=== PATIENT | female | born 1960 | race Hispanic/Latino ===

== ENCOUNTER 2017-07-18 07:25 | Outpatient (CLI) | payer OTHER ==
--- NOTE | 2017-07-18 09:48 | ULT ---
ULTRASOUND ABDOMEN: Date: 07/18/17 HISTORY: Left upper quadrant pain, cirrhosis. FINDINGS: The liver demonstrates a coarse echotexture with irregularity of the surface consistent with cirrhosi s. No focal mass or intrahepatic ductal dilatation is seen. The spleen measures 11.3 cm in length and is normal. The patient is post cholecystectomy. The common duct measures 4.0 mm in diameter. The kid neys and visualized portions of the pancreas are unremarkable. No free fluid is seen. IMPRESSION: 1. Cirrhosis of the liver. No evidence of liver mass. 2. Status post cholecystectomy. POS: [facility]
== END 2017-07-18 07:26 | disposition home or self-care (01) ==
LOC: ULT 07:25
PROVIDERS: ATTEND Internal Medicine Gastroenterology
DX: K74.60 Unspecified cirrhosis of liver (principal); R18.8 Other ascites; R10.12 Left upper quadrant pain; Z90.49 Acquired absence of other specified parts of digestive tract
CPT/HCPCS: 76700

== ENCOUNTER 2017-08-23 09:09 | Outpatient (CLI) | payer OTHER ==
--- NOTE | 2017-08-23 09:49 | CT ---
CT HEAD NONCONTRAST: HISTORY: Headaches. COMPARISON: 03/20/16. FINDINGS: There is no evidence of acute intracranial hemorrhage or infarct. The ventricles appear normal in si ze, shape, and position. There is no mass effect or shift of midline structures. Visualized paranas al sinuses remain well aerated. IMPRESSION: No acute intracranial abnormalities are demonstrated on noncontrast CT head. POS: [facility]
--- NOTE | 2017-08-23 10:36 | CT ---
CT CERVICAL SPINE: Multiple axial tomograms obtained through the cervical spine with multiplanar reconstruction. INDICATION: Headache and neck pain. FINDINGS: Postoperative changes are noted. Anterior plate and screws transfix C3, C4, and C5 levels. Interbod y implant and partial fusion at C3-4 and C4-5 noted. A prominent posterior osteophyte at C2-3 abuts and mildly flattens the anterior cord. At the C3-4 and C4-5 levels, there are bony spondylitic changes posteriorly. A prominent osteophyte at C4-5 impinging on the anterior cord centrally and slightly to the right. Uncinate hypertrophy is present resulting I mild left foraminal encroachment. At C5-6, mild spondylosis and disk bulge. These changes efface the anterior subarachnoid space. At C6-7, mild spondylosis effaces the anterior subarachnoid space. IMPRESSION: 1. Postop changes with prior anterior fusion procedure with anterior plate and screws transfixing C3 , C4, and C5 with interbody implants and partial fusion at these levels. 2. Prominent posterior osteophyte at C2-3 impinges on the cord. 3. Spondylitic changes are seen at C3-4 and C4-5 with these bony hypertrophic changes impinging on t he cord at these levels. POS: [facility]
== END 2017-08-23 09:10 | disposition home or self-care (01) ==
LOC: CT 09:09
PROVIDERS: ATTEND Student in an Organized Health Care Education/Training Program
DX: G43.719 Chronic migraine without aura, intractable, without status migrainosus (principal); M54.2 Cervicalgia; G51.0 Bell's palsy; M25.78 Osteophyte, vertebrae; M47.892 Other spondylosis, cervical region; Z98.1 Arthrodesis status
CPT/HCPCS: 70450; 72125

== ENCOUNTER 2017-11-05 07:01 | Day surgery (SDC) | payer OTHER ==
[2017-11-04 12:21] VITALS: BMI 36.0
[2017-11-05 08:19] VITALS: BP 110/53; TEMP 98.2
[2017-11-05] MEDS ORDERED: HYDROcodone/Acetaminophen 5/325 mg Tablet ONE (08:54)
--- NOTE | 2017-11-05 09:29 | CT ---
CERVICAL MYELOGRAM CT CERVICAL SPINE WITH CONTRAST: History: Neck pain. Prior surgery. FINDINGS: After explaining the procedure and answering all questions, the lower back was prepped and draped in the usual sterile fashion. Sterile technique, buffered local anesthesia, fluoroscopic guidance, and a right posterolateral L3-4 approach were used to carefully advance a 22 gauge spinal needle to the th ecal sac. A total volume of 8 cc of Isovue 300M contrast was carefully instilled into the thecal sac under fluoroscopic control. Needle was removed. Patient was carefully positioned to move contrast int o the cervical spine. Fluoro time = 1.3 minutes. Patient tolerated the procedure well and was transferred to CT in good con dition for further imaging. Vertebral body heights and alignment are maintained. Anterior fixation of the cervical spine is prese nt at C3-4-5 levels with interbody fusion material in the confines in the disc spaces. C2-3: Posterior midline osteophyte/disc complex with effacement of the ventral aspect of the thecal s ac and spinal cord. Neural foramina are patent. C3-4: Post-operative changes. Mild effacement of the ventral aspect of the thecal sac and spinal cord by an osteophyte/disc complex. Neural foramina are patent. C4-5: Post-operative changes. Posterior osteophyte/disc complex effaces the ventral aspect of the the leslie sac and spinal cord by approximately 20%. Neural foramina are patent. C5-6: Mild posterior osteophyte/disc complex with minimal effacement of the thecal sac. Neural forami na are patent. C6-7: Mild osteophytosis. Central canal and neural foramina are patent. C7-T1: Central canal and neural foramina are patent. IMPRESSION: Post-operative changes and mild multilevel degenerative changes cervical spine as detailed above. No focal disc herniation or nerve root compression are apparent. POS: [facility]
[2017-11-05] MEDS ORDERED: Iopamidol-M 300 61% 15 ML VIAL ONE (12:38)
== END 2017-11-05 10:30 | disposition home or self-care (01) ==
LOC: RAD 07:01
PROVIDERS: ATTEND Neurological Surgery
PROC: B02BY0Z Computerized Tomography (CT Scan) of Spinal Cord using Other Contrast, Unenhanced and Enhanced (ICD-10-PCS; principal; 2017-11-05)
DX: M47.812 Spondylosis without myelopathy or radiculopathy, cervical region (principal); J45.909 Unspecified asthma, uncomplicated; M79.7 Fibromyalgia; G43.909 Migraine, unspecified, not intractable, without status migrainosus; K21.9 Gastro-esophageal reflux disease without esophagitis; K74.60 Unspecified cirrhosis of liver; E11.9 Type 2 diabetes mellitus without complications; F32.9 Major depressive disorder, single episode, unspecified; Z88.0 Allergy status to penicillin; Z88.8 Allergy status to other drugs, medicaments and biological substances; Z88.1 Allergy status to other antibiotic agents; Z79.84 Long term (current) use of oral hypoglycemic drugs; Z79.899 Other long term (current) drug therapy; Z79.52 Long term (current) use of systemic steroids
CPT/HCPCS: 62302; 72126

== ENCOUNTER 2018-01-31 12:31 | Outpatient (CLI) | payer OTHER ==
--- NOTE | 2018-01-31 15:52 | CT ---
CT ABDOMEN AND PELVIS WITH CONTRAST: INDICATIONS: Nonalcoholic cirrhosis. Nausea and bloating. COMPARISON: Prior abdominal CT, dated 02/06/2017. TECHNIQUE: Multiple axial tomograms obtained through the abdomen and pelvis with IV enhancement. Oral contrast was given. FINDINGS: The lung bases are clear. The liver shows a very nodular contour. The overall size of the liver is small. The spleen is not e nlarged. Post cholecystectomy changes are noted. Small volume ascites is noted, with a small amount of fluid around the liver and spleen and radiating into both colonic gutters. The pancreas is unremarkable in appearance. The adrenal glands and kidneys are unremarkable. Small bowel loops show nonspecific distention and have a similar appearance to the prior study. The right colon is poorly distended. I cannot exclude mural thickening in the right colon, and there is some surrounding inflammatory stranding and haziness around the right colon, of uncertain significanc e. Diverticulosis of the left colon and sigmoid colon without CT evidence of diverticulitis. There are numerous nonspecific mesenteric and periaortic lymph nodes, which are increased in number b ut are stable when compared to prior study. There are increased vascular structures in the upper abdomen, seen in the hepatogastric region and ex tending to the esophagus, consistent with esophageal varices and portal hypertension. IMPRESSION: 1. Nodular liver, consistent with history of cirrhosis. There is evidence of portal hypertension wi th esophageal varices. 2. Small volume ascites. 3. Increased number of nonspecific mesenteric and periaortic lymph nodes, which appear stable from p rior studies. 4. Nondistention of right colon with questioned mural thickening and surrounding inflammation. The surrounding inflammatory changes may be due to the ascites. POS: [facility]
== END 2018-01-31 12:32 | disposition home or self-care (01) ==
LOC: BICCT 12:31
PROVIDERS: ATTEND Internal Medicine Gastroenterology
DX: K74.60 Unspecified cirrhosis of liver (principal); K76.6 Portal hypertension; I85.10 Secondary esophageal varices without bleeding; R18.8 Other ascites; K76.89 Other specified diseases of liver
CPT/HCPCS: 74177

== ENCOUNTER 2018-11-04 08:20 | Outpatient (CLI) | payer OTHER, MEDICARE ==
--- NOTE | 2018-11-04 10:59 | ULT ---
HEPATIC ULTRASOUND WITH DUPLEX EVALUATION: HISTORY: Cirrhosis. COMPARISON: CT of the abdomen and pelvis dated 01/31/2018. TECHNIQUE: Desai scale, color Doppler images were obtained of the liver and spleen. Spectral Doppler evaluation was performed of the hepatic vasculature. FINDINGS: There is cirrhotic morphology of the liver. No focal hepatic lesion is evident. The gallbladder is surgically absent. The spleen is mildly enlarged measuring 12.2 cm. The common bile duct measures 3.4 cm. The visualized aspects of the pancreas are unremarkable. There is mild ascites around the liver. Appropriate hepatopetal flow is seen within the hepatic vasculature. IMPRESSION: 1. Cirrhosis with findings of portal hypertension and mild ascites. 2. Appropriate hepatopetal flow is seen within the hepatic vasculature. POS: [facility]
== END 2018-11-04 08:21 | disposition home or self-care (01) ==
LOC: BICULT 08:20
PROVIDERS: ATTEND Internal Medicine Gastroenterology
DX: K74.60 Unspecified cirrhosis of liver (principal); K76.89 Other specified diseases of liver; R18.8 Other ascites; K76.6 Portal hypertension
CPT/HCPCS: 76705

== ENCOUNTER 2018-12-19 10:57 | Outpatient (CLI) | payer OTHER, MEDICARE ==
--- NOTE | 2018-12-19 11:53 | ULT ---
ULTRASOUND DOPPLER DUPLEX VENOUS LEFT LOWER EXTREMITY: DATE: 12/19/2018 HISTORY: 58-year-old female with left lower extremity pain TECHNIQUE: Grayscale, color-flow, and spectral analysis, of major veins of left lower extremity. FINDINGS: There is demonstration of blood flow with normal compressibility, of the left common femoral, profund a femoral, greater saphenous, femoral, popliteal, and posterior tibial, veins. IMPRESSION: Negative. No deep venous thrombosis of left lower extremity.
== END 2018-12-19 10:58 | disposition home or self-care (01) ==
LOC: ULT 10:57
PROVIDERS: ATTEND Internal Medicine
DX: M79.652 Pain in left thigh (principal)

== ENCOUNTER 2019-03-19 18:19 | Emergency (ER) | payer OTHER, MEDICARE ==
--- NOTE | 2019-03-19 20:07 | ULT ---
ULTRASOUND DOPPLER DUPLEX VENOUS BILATERAL LOWER EXTREMITIES: DATE: 03/19/2019 HISTORY: Bilateral lower extremity pain in 58-year-old female TECHNIQUE: Grayscale, color-flow, and spectral analysis, of major veins of bilateral lower extremities. FINDINGS: There is demonstration of blood flow with normal compressibility, of the bilateral common femoral, pr ofunda femoral, greater saphenous, femoral, popliteal, and posterior tibial, veins. IMPRESSION: Negative. No deep venous thrombosis of bilateral lower extremities.
== END 2019-03-19 20:18 | disposition home or self-care (01) ==
LOC: SCSER 18:19
DX: M79.661 Pain in right lower leg (principal); M79.651 Pain in right thigh; M25.561 Pain in right knee; J44.9 Chronic obstructive pulmonary disease, unspecified; I10 Essential (primary) hypertension; M79.7 Fibromyalgia; E11.40 Type 2 diabetes mellitus with diabetic neuropathy, unspecified; G43.909 Migraine, unspecified, not intractable, without status migrainosus; M19.90 Unspecified osteoarthritis, unspecified site; F32.9 Major depressive disorder, single episode, unspecified; Z79.899 Other long term (current) drug therapy; Z79.84 Long term (current) use of oral hypoglycemic drugs
CPT/HCPCS: 93970

== ENCOUNTER 2019-06-19 14:12 | Outpatient (CLI) | payer OTHER, MEDICARE ==
--- NOTE | 2019-06-19 15:11 | RAD ---
PA AND LATERAL VIEWS OF THE CHEST: 06/19/19 HISTORY: Dyspnea. FINDINGS: Comparison is made to the exam of 08/07/16. The heart size is mildly enlarged. The lungs are expanded without focal areas of consolidation, pneum othoraces, sapna pulmonary edema or pleural effusions. There are degenerative changes in the spine. IMPRESSION: No radiographic evidence of acute cardiopulmonary process. POS: [facility]
== END 2019-06-19 14:13 | disposition home or self-care (01) ==
LOC: BICRAD 14:12
PROVIDERS: ATTEND Internal Medicine Gastroenterology
DX: R06.00 Dyspnea, unspecified (principal); K74.60 Unspecified cirrhosis of liver; M79.604 Pain in right leg; M79.605 Pain in left leg; M54.2 Cervicalgia; G89.29 Other chronic pain; K21.9 Gastro-esophageal reflux disease without esophagitis; K72.91 Hepatic failure, unspecified with coma; E11.9 Type 2 diabetes mellitus without complications
CPT/HCPCS: 71046

== ENCOUNTER 2019-10-27 07:49 | Outpatient (CLI) | payer OTHER, MEDICARE ==
--- NOTE | 2019-10-27 08:19 | ULT ---
Sonogram abdomen complete HISTORY: Cirrhosis. FINDINGS: Gallbladder is surgically absent. Common duct is 0.3 cm. Liver has a heterogeneous echotexture and very nodular contour. No focal mass or intrahepatic biliary dilatation evident. No free fluid. The spleen, kidneys, and visualized portions of abdominal aorta and IVC are within normal limits. Castillo creas mostly obscured by bowel gas. IMPRESSION : Cirrhotic appearance of the liver. No sonographic findings of portal venous hypertension. Status post cholecystectomy.
== END 2019-10-27 07:50 | disposition home or self-care (01) ==
LOC: BICULT 07:49
PROVIDERS: ATTEND Internal Medicine Gastroenterology
DX: K21.9 Gastro-esophageal reflux disease without esophagitis (principal); R10.30 Lower abdominal pain, unspecified; K72.91 Hepatic failure, unspecified with coma; M54.2 Cervicalgia; G89.29 Other chronic pain; M79.605 Pain in left leg; M79.604 Pain in right leg; E11.9 Type 2 diabetes mellitus without complications; R05 Cough; K74.69 Other cirrhosis of liver; Z90.49 Acquired absence of other specified parts of digestive tract
CPT/HCPCS: 93975

== ENCOUNTER 2020-04-01 16:54 | Emergency (ER) | payer MEDICARE, OTHER ==
[~2020-04-01 16:54] MED LIST: Iopamidol-370 76% 500 ML 1 ML ONE
[2020-04-01 17:29] LABS: Hemoglobin 13.9 g/dL (12.0-16.0); Mean Corpuscular HGB CONC 35.2 g/dL (32.0-36.0); Mean Corpuscular Hemoglobin 35.9 pg (27.0-31.0); Mean Platelet Volume 7.8 fL (7.4-10.4); Platelet Count 107 thou/uL (130-400); RBC Distribution Width 12.5 % (11.5-14.5); Red Blood Cell (RBC) Count 3.86 mill/uL (4.20-5.40); White Blood Cell (WBC) Count 4.8 thou/uL (4.8-10.8)
--- NOTE | 2020-04-01 17:51 | RAD ---
RADIOGRAPH CHEST 1 VIEW: DATE: 04/01/2020 HISTORY: 59 year-old: Positive female presents with dyspnea FINDINGS: There is cardiomegaly. There is mild prominence of pulmonary vasculature. There is no evidence of air space density, pulmonary edema, or pneumothorax. The lateral costophrenic angles are not effaced. IMPRESSION: 1) No consolidation. 2) cardiomegaly and mild pulmonary venous congestion, without sapna pulmonary edema.
[2020-04-01 17:56] LABS: ALT (SGPT) 31 U/L (8-55); AST (SGOT) 46 U/L (5-34); Albumin 3.2 g/dL (3.5-5.0); Alkaline Phosphatase 200 U/L (40-110); Anion Gap 15 mmol/L (10-20); BUN (Urea Nitrogen) 10 mg/dL (9.8-20.1); Bilirubin, Total 2.4 mg/dL (0.2-1.2); Calc. Creatinine Clearance 0 mL/min (70-130); Calcium 9.3 mg/dL (7.8-10.44); Carbon Dioxide 25 mmol/L (22-29); Chloride 101 mmol/L (98-107); Globulin 3.4 g/dL (2.4-3.5); Glucose 189 mg/dL (70-105); Protein, Total 6.6 g/dL (6.0-8.3); Sodium 137 mmol/L (136-145)
[2020-04-01 18:07] LABS: Band 4 % (5-11); Eosinophils 4 % (0-10); Lymphocytes 19 % (21-51); MDiff Complete? YES; Macrocytosis SLIGHT = 6-15 cells (100X) (0-5/hpf); Monocytes 10 % (0-10); Neutrophil 60 % (42-75); Platelet Morphology Comment Appears Decreased
--- NOTE | 2020-04-01 19:28 | CT ---
CT PULMONARY ANGIOGRAM WITH IV CONTRAST AND 3D POSTPROCESSIN04/01/20 HISTORY: Difficulty breathing, elevated D-dimer. COVID positive. FINDINGS: No filling defects are seen in the pulmonary arterial vasculature to suggest pulmonary embolism. The thoracic aorta is well opacified without aneurysm or dissection. No pleural or pericardial effusions are seen. No pneumothoraces, ground glass opacities, focal areas of consolidation, lung nodules, or m asses are seen. Upper abdominal tomograms demonstrate cirrhosis of the liver, changes of cholecystectomy, ascites, an d paraesophageal varices. There are degenerative changes in the spine. IMPRESSION: No CT evidence of pulmonary embolism. POS: [facility]
== END 2020-04-01 19:42 | disposition home or self-care (01) ==
LOC: ERS 16:54
DX: U07.1 COVID-19 (principal); K74.60 Unspecified cirrhosis of liver; G51.0 Bell's palsy; J44.9 Chronic obstructive pulmonary disease, unspecified; M79.7 Fibromyalgia; E11.21 Type 2 diabetes mellitus with diabetic nephropathy; Z79.84 Long term (current) use of oral hypoglycemic drugs; Z79.899 Other long term (current) drug therapy
CPT/HCPCS: 36415; 71045; 71275; 80053; 84484; 85025; 85379; 93005; Q9967

== ENCOUNTER 2020-05-13 08:40 | Outpatient (CLI) | payer OTHER, MEDICARE ==
--- NOTE | 2020-05-13 10:20 | CT ---
CT ABDOMEN AND PELVIS WITH IV CONTRAST: Date: 05/13/2020 INDICATION: History of upper abdominal pain. COMPARISON: Prior CT of the abdomen and pelvis with contrast dated 01/31/2018. FINDINGS: Lung bases are clear. There are prominent paraesophageal varicosities that are stable to the prior. There is cirrhotic morphology to the liver. No focal lesion is evident. Gallbladder is surgically abs ent. A few shotty appearing lymph nodes are seen within the periportal region. Main portal vein appears to enhance appropriately. Pancreas, spleen, and adrenal glands are normal appearing. Visualized kidneys are normal appearing. T here is mild free fluid in the abdomen. The visualized colon demonstrates a mild amount of retained stool. Small bowel is of normal caliber. No definite acute osseous abnormality is evident. IMPRESSION: 1. Cirrhosis with findings of portal hypertension with prominent paraesophageal varicosities. 2. Mild ascites. 3. No definite CT explanation for the patient's abdominal pain. POS: [facility]
[2020-05-13] MEDS ORDERED: Iopamidol-370 76% 500 ML 1 ML ONE (14:54)
== END 2020-05-13 08:41 | disposition home or self-care (01) ==
LOC: BICCT 08:40
PROVIDERS: ATTEND Internal Medicine Gastroenterology
DX: K74.60 Unspecified cirrhosis of liver (principal); I85.00 Esophageal varices without bleeding; R18.8 Other ascites; K76.6 Portal hypertension
CPT/HCPCS: 74160; Q9967

== ENCOUNTER 2020-11-10 13:37 | Outpatient (CLI) | payer OTHER, MEDICARE | END 2020-11-10 13:38 | disposition home or self-care (01) | LOC: BICRAD 13:37 | PROVIDERS: ATTEND Internal Medicine Gastroenterology | DX: J90 Pleural effusion, not elsewhere classified (principal); K74.60 Unspecified cirrhosis of liver; K21.9 Gastro-esophageal reflux disease without esophagitis; E11.9 Type 2 diabetes mellitus without complications | CPT/HCPCS: 71046 ==

== ENCOUNTER 2021-04-05 07:20 | Outpatient (CLI) | payer OTHER, MEDICARE | END 2021-04-05 07:21 | disposition home or self-care (01) | LOC: ULT 07:20 | PROVIDERS: ATTEND Internal Medicine Gastroenterology | DX: K21.9 Gastro-esophageal reflux disease without esophagitis (principal); R14.0 Abdominal distension (gaseous); E11.9 Type 2 diabetes mellitus without complications; K74.60 Unspecified cirrhosis of liver; K76.6 Portal hypertension; R18.8 Other ascites | CPT/HCPCS: 76705 ==

== ENCOUNTER 2021-08-23 13:16 | Inpatient (IN) | payer OTHER, MEDICARE ==
[2021-08-23 14:32] LABS: Bacteria/HPF None Seen HPF (None Seen); Bilirubin Negative (Negative); Blood, Urine Negative (Negative); Clarity Turbid (Clear); Glucose, Urine (Dipstick) Normal (Negative); Ketone, Urine Negative (Negative); Leukocyte 250 Leu/uL (Negative); Nitrite Negative (Negative); Protein, Urine (Dipstick) 30 mg/dL (Neg-Trace); RBC/HPF 0-3 HPF (0-3)
[2021-08-23] MEDS ORDERED: Ondansetron PF 4 MG/2 ML Vial ONE (15:03)
[2021-08-23] MEDS ORDERED: Morphine 4 MG/ML VIAL ONE (15:04)
[2021-08-23 15:08] LABS: Hemoglobin 11.5 g/dL (12.0-16.0); Mean Corpuscular HGB CONC 33.9 g/dL (32.0-36.0); Mean Corpuscular Hemoglobin 35.2 pg (27.0-31.0); Mean Platelet Volume 6.4 fL (7.4-10.4); Platelet Count 157 thou/uL (130-400); RBC Distribution Width 12.5 % (11.5-14.5); Red Blood Cell (RBC) Count 3.28 mill/uL (4.20-5.40)
[2021-08-23 15:24] LABS: Band 6 % (5-11); Eosinophils 3 % (0-10); Lymphocytes 7 % (21-51); MDiff Complete? YES; Macrocytosis SLIGHT = 6-15 cells (100X) (0-5/hpf); Monocytes 21 % (0-10); Neutrophil 62 % (42-75); Platelet Morphology Comment Appears Adequate; Polychromasia SLIGHT = 2-3 cells (100X) (0-2/hpf); Reactive Lymphocytes 1 % (0-10)
[2021-08-23 15:33] LABS: ALT (SGPT) 24 U/L (8-55); AST (SGOT) 43 U/L (5-34); Albumin 2.7 g/dL (3.5-5.0); Alkaline Phosphatase 95 U/L (40-110); Anion Gap 11 mmol/L (10-20); BUN (Urea Nitrogen) 20 mg/dL (9.8-20.1); Bilirubin, Total 3.1 mg/dL (0.2-1.2); Calc. Creatinine Clearance 0 mL/min (70-130); Calcium 8.6 mg/dL (7.8-10.44); Carbon Dioxide 20 mmol/L (22-29); Chloride 101 mmol/L (98-107); Globulin 3.2 g/dL (2.4-3.5); Glucose 124 mg/dL (70-105); Lipase 26 U/L (8-78); Potassium 4.6 mmol/L (3.5-5.1); Protein, Total 5.9 g/dL (6.0-8.3); Sodium 127 mmol/L (136-145)
[2021-08-23] MEDS ORDERED: Dextrose 50% Abboject 50 ML SYRINGE SLOW IVP PRN (19:14)
[2021-08-23] MEDS ORDERED: HumaLOG 300 UNITS/3 ML VIAL SC PRN ×2 (19:14)
[2021-08-23] MEDS ORDERED: Dextrose 5% in Water 1,000 ML IV PRN (19:14)
[2021-08-23 19:28] LABS: INR-International Normal Ratio 1.2; Prothrombin Time 15.7 sec (12.0-14.7)
[2021-08-23 19:29] LABS: PTT 38.6 sec (22.9-36.1)
[2021-08-23] MEDS ORDERED: Ondansetron ODT 4 MG TAB PO PRN (19:36)
[2021-08-23] MEDS ORDERED: Heparin 25,000 units/D5W 500 ML IVPB SCH (19:45)
[2021-08-23] MEDS ORDERED: Heparin 10,000 UNITS/ 10 ML VIAL SLOW IVP SCH (19:45)
[2021-08-23] MEDS ORDERED: Heparin 25,000 units/D5W 500 ML IV SCH (20:00)
[2021-08-23] MEDS ORDERED: Albuterol 200 PUFF (6.7GM INHALER) INH PRN (22:24)
[2021-08-23 22:30] LABS: Platelet Count 155 thou/uL (130-400)
[2021-08-23] MEDS ORDERED: Albumin 25% 25 GM/100 ML BOT IVPB SCH (22:30)
[2021-08-23] MEDS ORDERED: cefTRIAXone\\ROCEPHIN 1 GM in Sodium Chloride 0.9% 100 ML IVPB SCH (23:00)
[2021-08-23 23:59] VITALS: BMI 34.6
[2021-08-24 04:39] LABS: #Eosinphils 0.1 thou/uL (0.0-0.7); #Lymphocytes 0.6 thou/uL (1.20-3.40); #Neutrophils 5.2 thou/uL (1.40-6.50); %Basophils 0.3 % (0.0-1.0); %Eosinophils 1.3 % (0.0-10.0); %Lymphocytes 8.5 % (21.0-51.0); %Monocytes 14.6 % (0.0-10.0); %Neutrophils 75.3 % (42.0-75.0); Hemoglobin 9.9 g/dL (12.0-16.0); Mean Corpuscular HGB CONC 34.4 g/dL (32.0-36.0); Mean Corpuscular Hemoglobin 36.2 pg (27.0-31.0); Mean Platelet Volume 6.5 fL (7.4-10.4); Platelet Count 121 thou/uL (130-400); RBC Distribution Width 12.5 % (11.5-14.5); Red Blood Cell (RBC) Count 2.72 mill/uL (4.20-5.40); White Blood Cell (WBC) Count 6.9 thou/uL (4.8-10.8)
[2021-08-24 04:56] LABS: Anion Gap 11 mmol/L (10-20); BUN (Urea Nitrogen) 22 mg/dL (9.8-20.1); Calc. Creatinine Clearance 78 mL/min (70-130); Calcium 8.4 mg/dL (7.8-10.44); Carbon Dioxide 18 mmol/L (22-29); Chloride 103 mmol/L (98-107); Glucose 129 mg/dL (70-105); Potassium 4.4 mmol/L (3.5-5.1); Sodium 128 mmol/L (136-145)
[2021-08-24 05:15] LABS: PTT Greater than 250.0 sec (22.9-36.1)
[2021-08-24 08:21] LABS: PTT Greater than 250.0 sec (22.9-36.1)
[2021-08-24] MEDS ORDERED: Famotidine 20 MG TAB PO SCH (09:00)
[2021-08-24 09:21] LABS: Unfractionated Heparin 0.37 IU/mL
[2021-08-24 09:56] LABS: Unfractionated Heparin 0.15 IU/mL
[2021-08-24 10:03] LABS: PTT 188.7 sec (22.9-36.1)
[2021-08-24] MEDS: Spironolactone 100 MG TAB PO SCH (10:44)
[2021-08-24] MEDS: Dicyclomine 10 MG CAP PO SCH ×2 (10:45→20:37)
[2021-08-24] MEDS: Furosemide 20 MG TAB PO SCH (10:46)
[2021-08-24 12:28] LABS: INR-International Normal Ratio 1.4; PTT 52.1 sec (22.9-36.1); Prothrombin Time 17.4 sec (12.0-14.7)
[2021-08-24 12:31] LABS: SARS-CoV-2 PCR by NAA Not Detected (NotDetected)
[2021-08-24] MEDS: Spironolactone 25 MG TAB PO SCH (17:03)
[2021-08-24] MEDS: Albumin 25% 25 GM/100 ML BOT IVPB SCH ×2 (17:04→23:58)
[2021-08-24] MEDS: Propranolol HCl LA 60 MG CAP PO SCH (20:37)
[2021-08-24] MEDS: cefTRIAXone\\ROCEPHIN 1 GM in Sodium Chloride 0.9% 100 ML IVPB SCH (22:45)
[2021-08-25 04:47] LABS: Anion Gap 11 mmol/L (10-20); BUN (Urea Nitrogen) 22 mg/dL (9.8-20.1); Calc. Creatinine Clearance 79 mL/min (70-130); Calcium 8.4 mg/dL (7.8-10.44); Carbon Dioxide 20 mmol/L (22-29); Chloride 103 mmol/L (98-107); Glucose 97 mg/dL (70-105); Potassium 4.3 mmol/L (3.5-5.1); Sodium 130 mmol/L (136-145)
[2021-08-25 05:33] LABS: Band 12 % (5-11); Eosinophils 1 % (0-10); Hemoglobin 8.8 g/dL (12.0-16.0); Lymphocytes 10 % (21-51); MDiff Complete? YES; Mean Corpuscular Hemoglobin 36.3 pg (27.0-31.0); Mean Platelet Volume 6.4 fL (7.4-10.4); Monocytes 12 % (0-10); Neutrophil 64 % (42-75); Platelet Count 96 thou/uL (130-400); Platelet Morphology Comment Appears Decreased; RBC Distribution Width 12.4 % (11.5-14.5); Red Blood Cell (RBC) Count 2.43 mill/uL (4.20-5.40); White Blood Cell (WBC) Count 5.2 thou/uL (4.8-10.8)
[2021-08-25] MEDS ORDERED: Sodium Bicarbonate 2.5 MEQ/5 ML VIAL ONE (07:34)
[2021-08-25] MEDS ORDERED: Lidocaine 1% PF 5 ML VIAL ONE (07:34)
[2021-08-25] MEDS: Dicyclomine 10 MG CAP PO SCH ×2 (07:41→21:14)
[2021-08-25] MEDS: Pantoprazole 40 MG VIAL IVP SCH (07:41)
[2021-08-25] MEDS: Furosemide 20 MG TAB PO SCH (07:41)
[2021-08-25] MEDS: Spironolactone 100 MG TAB PO SCH (07:41)
[2021-08-25] MEDS ORDERED: Morphine 2 MG/ML VIAL SLOW IVP SCH (08:00)
[2021-08-25] MEDS ORDERED: Famotidine 20 MG TAB PO SCH (09:00)
[2021-08-25] MEDS: Albumin 25% 25 GM/100 ML BOT IVPB SCH ×2 (10:21→22:43)
[2021-08-25 10:37] LABS: RBC Count-Automated (BF) 5212 /cu.mm; WBC/Nucleated-Auto (BF) 291 /cu.mm
[2021-08-25 10:38] LABS: Body Fluid Source Ascites Body Fluid; Tube # 1
[2021-08-25 10:39] LABS: BF Color Yellow; Clarity Cloudy/Turbid (Clear)
[2021-08-25 11:18] LABS: BF Segmented Neutrophils 7 %; Cell Count Non Hematic 42 %; Lymphocytes 51 %
[2021-08-25] MEDS: Spironolactone 25 MG TAB PO SCH (16:36)
[2021-08-25 20:22] LABS: Hemoglobin 9.9 g/dL (12.0-16.0); Platelet Count 116 thou/uL (130-400)
[2021-08-25] MEDS ORDERED: Enoxaparin Sodium 80 MG/0.8 ML SYRINGE SC SCH (21:00)
[2021-08-25] MEDS: Propranolol HCl LA 60 MG CAP PO SCH (21:15)
[2021-08-25] MEDS: cefTRIAXone\\ROCEPHIN 1 GM in Sodium Chloride 0.9% 100 ML IVPB SCH (22:44)
[2021-08-26] MEDS ORDERED: Apixaban 5 MG TAB PO SCH (09:00)
[2021-08-26 09:09] LABS: Hemoglobin 9.1 g/dL (12.0-16.0); Mean Corpuscular HGB CONC 34.9 g/dL (32.0-36.0); Mean Corpuscular Hemoglobin 36.2 pg (27.0-31.0); Mean Platelet Volume 6.7 fL (7.4-10.4); Platelet Count 97 thou/uL (130-400); RBC Distribution Width 12.6 % (11.5-14.5); Red Blood Cell (RBC) Count 2.52 mill/uL (4.20-5.40); White Blood Cell (WBC) Count 6.5 thou/uL (4.8-10.8)
[2021-08-26 09:29] LABS: Band 5 % (5-11); Eosinophils 3 % (0-10); Lymphocytes 5 % (21-51); MDiff Complete? YES; Macrocytosis SLIGHT = 6-15 cells (100X) (0-5/hpf); Monocytes 22 % (0-10); Neutrophil 65 % (42-75); Platelet Morphology Comment Appears Decreased; Polychromasia SLIGHT = 2-3 cells (100X) (0-2/hpf)
[2021-08-26] MEDS: Dicyclomine 10 MG CAP PO SCH (11:51)
[2021-08-26] MEDS: Furosemide 20 MG TAB PO SCH (11:51)
[2021-08-26] MEDS: Pantoprazole 40 MG VIAL IVP SCH (11:51)
[2021-08-26] MEDS: Spironolactone 100 MG TAB PO SCH (11:51)
[2021-08-26 12:02] VITALS: BP 109/55; TEMP 97.4
== END 2021-08-26 13:27 | disposition home or self-care (01) | DRG 442 ==
LOC: ERS 13:16 → 2NO 17:41
PROVIDERS: ADMIT Internal Medicine; ATTEND Internal Medicine
PROC: 0W9G3ZZ Drainage of Peritoneal Cavity, Percutaneous Approach (ICD-10-PCS; principal; 2021-08-25)
DX: I81 Portal vein thrombosis (principal); R18.8 Other ascites; K76.6 Portal hypertension; E87.1 Hypo-osmolality and hyponatremia; N17.9 Acute kidney failure, unspecified; I85.10 Secondary esophageal varices without bleeding; K74.60 Unspecified cirrhosis of liver; Z20.822 Contact with and (suspected) exposure to COVID-19; K75.81 Nonalcoholic steatohepatitis (NASH); G51.0 Bell's palsy; E11.9 Type 2 diabetes mellitus without complications; G43.909 Migraine, unspecified, not intractable, without status migrainosus; F32.A Depression, unspecified; M48.02 Spinal stenosis, cervical region; M79.7 Fibromyalgia; J44.9 Chronic obstructive pulmonary disease, unspecified; Z88.1 Allergy status to other antibiotic agents; Z88.0 Allergy status to penicillin; Z88.8 Allergy status to other drugs, medicaments and biological substances; Z79.899 Other long term (current) drug therapy; Z79.84 Long term (current) use of oral hypoglycemic drugs; Z79.51 Long term (current) use of inhaled steroids; Z90.49 Acquired absence of other specified parts of digestive tract; Z98.51 Tubal ligation status; Z90.89 Acquired absence of other organs; Z98.890 Other specified postprocedural states
CPT/HCPCS: 36415; 36416; 49083; 70450; 74150; 74177; 80048; 80053; 81003; 81015; 82042; 82140; 83690; 84157; 85025; 85060; 85520; 85610; 85730; 89051; 94760; C9113; J0696; J1644; J1650; J2270; J2405; J3490; P9047; U0003; U0005

== ENCOUNTER 2021-08-29 06:40 | Inpatient (IN) | payer OTHER, MEDICARE ==
[2021-08-29] MEDS ORDERED: Morphine 4 MG/ML VIAL ONE (07:16)
[2021-08-29] MEDS ORDERED: Ondansetron PF 4 MG/2 ML Vial ONE (07:16)
[2021-08-29 07:35] LABS: Hemoglobin 10.7 g/dL (12.0-16.0); Mean Corpuscular HGB CONC 34.1 g/dL (32.0-36.0); Mean Corpuscular Hemoglobin 35.2 pg (27.0-31.0); Mean Platelet Volume 6.3 fL (7.4-10.4); Platelet Count 148 thou/uL (130-400); Red Blood Cell (RBC) Count 3.05 mill/uL (4.20-5.40); White Blood Cell (WBC) Count 10.7 thou/uL (4.8-10.8)
[2021-08-29 07:52] LABS: Band 4 % (5-11); Eosinophils 1 % (0-10); Lymphocytes 11 % (21-51); MDiff Complete? YES; Monocytes 8 % (0-10); Neutrophil 76 % (42-75); Platelet Morphology Comment Appears Adequate; Polychromasia SLIGHT = 2-3 cells (100X) (0-2/hpf)
[2021-08-29 07:54] LABS: ALT (SGPT) 25 U/L (8-55); AST (SGOT) 49 U/L (5-34); Albumin 3.2 g/dL (3.5-5.0); Alkaline Phosphatase 90 U/L (40-110); Anion Gap 14 mmol/L (10-20); BUN (Urea Nitrogen) 18 mg/dL (9.8-20.1); Bilirubin, Total 3.7 mg/dL (0.2-1.2); CK (CPK) 45 U/L (29-168); Calc. Creatinine Clearance 0 mL/min (70-130); Calcium 8.6 mg/dL (7.8-10.44); Carbon Dioxide 17 mmol/L (22-29); Chloride 97 mmol/L (98-107); Globulin 2.7 g/dL (2.4-3.5); Glucose 128 mg/dL (70-105); Magnesium 1.9 mg/dL (1.6-2.6); Potassium 4.6 mmol/L (3.5-5.1); Protein, Total 5.9 g/dL (6.0-8.3); Sodium 123 mmol/L (136-145)
[2021-08-29 08:54] LABS: Bilirubin Small (Negative); Blood, Urine Trace (Negative); Glucose, Urine (Dipstick) Negative (Negative); Ketone, Urine Trace mg/dL (Negative); Leukocyte Negative (Negative); Nitrite Negative (Negative); Protein, Urine (Dipstick) Trace mg/dL (Neg-Trace); Urobilinogen 0.2 mg/dL (Less than 2); pH, Urine 5.5 (5.0-9.0)
[2021-08-29 08:55] LABS: Clarity Hazy (Clear)
[2021-08-29 08:56] LABS: Specific Gravity, Urine 1.032 (1.002-1.036)
[2021-08-29 09:07] LABS: Bacteria/HPF 2+ HPF (None Seen); RBC/HPF 0-3 HPF (0-3); Squamous Epithelial None Seen HPF (0-3); WBC/HPF 0-3 HPF (0-3)
[2021-08-29] MEDS ORDERED: HYDROcodone/Acetaminophen 5/325 mg Tablet PO PRN (11:41)
[2021-08-29] MEDS ORDERED: Acetaminophen 325 MG TAB PO PRN (11:41)
[2021-08-29] MEDS ORDERED: Calcium Carbonate 500 MG ChewTAB PO PRN (11:41)
[2021-08-29] MEDS ORDERED: Senokot S 8.6-50 MG TAB PO PRN (11:41)
[2021-08-29 12:28] LABS: INR-International Normal Ratio 1.3; Prothrombin Time 16.3 sec (12.0-14.7)
[2021-08-29] MEDS ORDERED: Albumin 25% 25 GM/100 ML BOT IVPB SCH (13:00)
[2021-08-29] MEDS ORDERED: Pregabalin 75 MG CAP PO PRN (13:08)
[2021-08-29] MEDS ORDERED: Dicyclomine 10 MG CAP PO PRN (13:08)
[2021-08-29] MEDS ORDERED: Lactulose 10 GM/15 ML Oral Solution PO PRN (13:12)
[2021-08-29 14:17] LABS: SARS-CoV-2 NAA Rapid Test Not Detected (NotDetected)
[2021-08-29] MEDS ORDERED: Lidocaine 1% PF 5 ML VIAL ONE (15:25)
[2021-08-29] MEDS ORDERED: Sodium Bicarbonate 2.5 MEQ/5 ML VIAL ONE (15:25)
[2021-08-29 16:08] LABS: Sodium, Urine Less than 20 mmol/L (Not Available)
[2021-08-29 18:53] LABS: RBC Count-Automated (BF) 6790 /cu.mm
[2021-08-29 19:05] LABS: BF Color Red; Body Fluid Source Peritoneal Fluid; Clarity Cloudy/Turbid (Clear); Tube # EDTA
[2021-08-29 19:13] LABS: WBC/Nucleated-Auto (BF) 168 /cu.mm
[2021-08-29 19:14] LABS: BF Segmented Neutrophils 16 %; Cell Count Non Hematic 58 %; Lymphocytes 26 %
[2021-08-29] MEDS: Sodium Chloride 0.9% 500 ML IV SCH (19:17)
[2021-08-29] MEDS: Sodium Bicarbonate Tab 325 MG TAB PO SCH (20:37)
[2021-08-29] MEDS: Enoxaparin Sodium 100 MG/ML SYRINGE SC SCH (20:37)
[2021-08-30 06:43] LABS: ALT (SGPT) 21 U/L (8-55); AST (SGOT) 41 U/L (5-34); Albumin 2.9 g/dL (3.5-5.0); Alkaline Phosphatase 74 U/L (40-110); Anion Gap 9 mmol/L (10-20); BUN (Urea Nitrogen) 22 mg/dL (9.8-20.1); Bilirubin, Total 2.8 mg/dL (0.2-1.2); Calc. Creatinine Clearance 95 mL/min (70-130); Calcium 8.5 mg/dL (7.8-10.44); Carbon Dioxide 21 mmol/L (22-29); Chloride 95 mmol/L (98-107); Globulin 2.1 g/dL (2.4-3.5); Glucose 110 mg/dL (70-105); Potassium 4.9 mmol/L (3.5-5.1); Sodium 120 mmol/L (136-145)
[2021-08-30] MEDS: Magnesium Oxide 400 MG TAB PO SCH (08:48)
[2021-08-30] MEDS: Multivit, Therapeutic 1 TAB PO SCH (08:48)
[2021-08-30] MEDS: Sodium Bicarbonate Tab 325 MG TAB PO SCH ×2 (08:48→20:21)
[2021-08-30] MEDS: Sodium Chloride 1 GM TAB PO SCH ×3 (08:48→20:20)
[2021-08-30] MEDS: Enoxaparin Sodium 100 MG/ML SYRINGE SC SCH (08:48)
[2021-08-30] MEDS ORDERED: Non-Formulary Item 1 EACH (Vitamin D3/Vitamin K2 (Mk4) [K2 Plus D3 Tablet] 1 EACH Tablet) PO SCH (09:00)
[2021-08-30] MEDS: Albumin 25% 25 GM/100 ML BOT IVPB SCH ×2 (11:34→16:19)
[2021-08-30] MEDS: Sodium Chloride 0.9% 500 ML IV SCH (19:06)
[2021-08-30] MEDS: Enoxaparin Sodium 80 MG/0.8 ML SYRINGE SC SCH (20:21)
[2021-08-31 07:42] LABS: Anion Gap 12 mmol/L (10-20); BUN (Urea Nitrogen) 21 mg/dL (9.8-20.1); Calc. Creatinine Clearance 93 mL/min (70-130); Calcium 8.4 mg/dL (7.8-10.44); Carbon Dioxide 19 mmol/L (22-29); Chloride 96 mmol/L (98-107); Glucose 111 mg/dL (70-105); Sodium 122 mmol/L (136-145)
[2021-08-31 08:14] LABS: Hemoglobin 8.8 g/dL (12.0-16.0); Platelet Count 105 thou/uL (130-400)
[2021-08-31] MEDS: Enoxaparin Sodium 80 MG/0.8 ML SYRINGE SC SCH ×2 (08:42→21:07)
[2021-08-31] MEDS: Sodium Chloride 1 GM TAB PO SCH ×3 (08:42→21:08)
[2021-08-31] MEDS: Multivit, Therapeutic 1 TAB PO SCH (08:42)
[2021-08-31] MEDS: Magnesium Oxide 400 MG TAB PO SCH (08:42)
[2021-08-31] MEDS: Sodium Bicarbonate Tab 325 MG TAB PO SCH ×3 (08:42→21:08)
[2021-08-31] MEDS: Albumin 25% 25 GM/100 ML BOT IVPB SCH ×2 (10:31→17:10)
[2021-08-31 11:59] LABS: Iron 54 ug/dL (50-170); Iron Binding Capacity, Total 165 mcg/dL (265-497)
[2021-08-31] MEDS ORDERED: Pantoprazole 40 MG VIAL IVP SCH (16:00)
[2021-08-31 16:24] LABS: Hemoglobin 8.6 g/dL (12.0-16.0); Platelet Count 113 thou/uL (130-400)
[2021-08-31 18:47] LABS: Anion Gap 12 mmol/L (10-20); BUN (Urea Nitrogen) 21 mg/dL (9.8-20.1); Calc. Creatinine Clearance 78 mL/min (70-130); Calcium 8.4 mg/dL (7.8-10.44); Carbon Dioxide 18 mmol/L (22-29); Chloride 96 mmol/L (98-107); Glucose 156 mg/dL (70-105); Potassium 4.6 mmol/L (3.5-5.1); Sodium 121 mmol/L (136-145)
[2021-08-31] MEDS: Midodrine HCl 5 MG TAB PO SCH (21:11)
[2021-08-31] MEDS: Pantoprazole 40 MG VIAL IVP SCH (21:11)
[2021-09-01 06:31] LABS: Band 10 % (5-11); Hemoglobin 8.2 g/dL (12.0-16.0); Hypochromia SLIGHT = 6-15 cells (100X) (0-5/hpf); Lymphocytes 7 % (21-51); MDiff Complete? YES; Macrocytosis SLIGHT = 6-15 cells (100X) (0-5/hpf); Mean Corpuscular HGB CONC 34.7 g/dL (32.0-36.0); Mean Corpuscular Hemoglobin 35.9 pg (27.0-31.0); Mean Platelet Volume 6.4 fL (7.4-10.4); Monocytes 12 % (0-10); Neutrophil 71 % (42-75); Platelet Count 105 thou/uL (130-400); Platelet Morphology Comment Appears Decreased; RBC Distribution Width 13.3 % (11.5-14.5); Red Blood Cell (RBC) Count 2.28 mill/uL (4.20-5.40); White Blood Cell (WBC) Count 8.1 thou/uL (4.8-10.8)
[2021-09-01 06:32] LABS: ALT (SGPT) 21 U/L (8-55); AST (SGOT) 40 U/L (5-34); Albumin 3.5 g/dL (3.5-5.0); Alkaline Phosphatase 67 U/L (40-110); Anion Gap 10 mmol/L (10-20); BUN (Urea Nitrogen) 21 mg/dL (9.8-20.1); Bilirubin, Total 2.9 mg/dL (0.2-1.2); Calc. Creatinine Clearance 93 mL/min (70-130); Calcium 8.1 mg/dL (7.8-10.44); Carbon Dioxide 19 mmol/L (22-29); Chloride 98 mmol/L (98-107); Globulin 1.6 g/dL (2.4-3.5); Glucose 114 mg/dL (70-105); Potassium 5.1 mmol/L (3.5-5.1); Protein, Total 5.1 g/dL (6.0-8.3); Sodium 122 mmol/L (136-145)
[2021-09-01] MEDS ORDERED: Cosyntropin 250 MCG VIAL SLOW IVP SCH (08:00)
[2021-09-01] MEDS: Midodrine HCl 5 MG TAB PO SCH ×3 (08:41→21:39)
[2021-09-01] MEDS: Sodium Bicarbonate Tab 325 MG TAB PO SCH ×3 (08:41→21:39)
[2021-09-01] MEDS: Multivit, Therapeutic 1 TAB PO SCH (08:41)
[2021-09-01] MEDS: Sodium Chloride 1 GM TAB PO SCH ×3 (08:41→21:40)
[2021-09-01] MEDS: Magnesium Oxide 400 MG TAB PO SCH (08:42)
[2021-09-01] MEDS: Enoxaparin Sodium 80 MG/0.8 ML SYRINGE SC SCH ×2 (08:42→21:40)
[2021-09-01] MEDS: Pantoprazole 40 MG VIAL IVP SCH ×2 (08:42→21:41)
[2021-09-01] MEDS: cefTRIAXone\\ROCEPHIN 1 GM in Sodium Chloride 0.9% 100 ML IVPB SCH (15:01)
[2021-09-02 06:48] LABS: Band 8 % (5-11); Burr Cells SLIGHT = 2-5 cells (100X) (0-1/hpf); Eosinophils 1 % (0-10); Hemoglobin 7.5 g/dL (12.0-16.0); Lymphocytes 5 % (21-51); MDiff Complete? YES; Macrocytosis SLIGHT = 6-15 cells (100X) (0-5/hpf); Mean Corpuscular HGB CONC 34.9 g/dL (32.0-36.0); Mean Corpuscular Hemoglobin 36.8 pg (27.0-31.0); Mean Platelet Volume 6.3 fL (7.4-10.4); Monocytes 16 % (0-10); Myelocyte 1 % (0-0); Neutrophil 69 % (42-75); Platelet Count 103 thou/uL (130-400); Platelet Morphology Comment Appears Decreased; RBC Distribution Width 13.6 % (11.5-14.5); Red Blood Cell (RBC) Count 2.03 mill/uL (4.20-5.40); White Blood Cell (WBC) Count 7.5 thou/uL (4.8-10.8)
[2021-09-02 06:54] LABS: ALT (SGPT) 19 U/L (8-55); AST (SGOT) 37 U/L (5-34); Albumin 3.1 g/dL (3.5-5.0); Alkaline Phosphatase 53 U/L (40-110); Anion Gap 13 mmol/L (10-20); BUN (Urea Nitrogen) 28 mg/dL (9.8-20.1); Bilirubin, Total 2.5 mg/dL (0.2-1.2); Calc. Creatinine Clearance 79 mL/min (70-130); Carbon Dioxide 18 mmol/L (22-29); Chloride 101 mmol/L (98-107); Globulin 1.7 g/dL (2.4-3.5); Glucose 86 mg/dL (70-105); Potassium 4.7 mmol/L (3.5-5.1); Protein, Total 4.8 g/dL (6.0-8.3); Sodium 127 mmol/L (136-145)
[2021-09-02] MEDS: Enoxaparin Sodium 80 MG/0.8 ML SYRINGE SC SCH (08:36)
[2021-09-02] MEDS: Pantoprazole 40 MG VIAL IVP SCH ×2 (08:36→22:16)
[2021-09-02] MEDS: Midodrine HCl 5 MG TAB PO SCH ×3 (08:37→22:14)
[2021-09-02] MEDS: Magnesium Oxide 400 MG TAB PO SCH (08:38)
[2021-09-02] MEDS: Sodium Chloride 1 GM TAB PO SCH ×3 (08:38→22:15)
[2021-09-02] MEDS: Sodium Bicarbonate Tab 325 MG TAB PO SCH ×3 (08:38→22:15)
[2021-09-02] MEDS: Multivit, Therapeutic 1 TAB PO SCH (08:38)
[2021-09-02] MEDS: cefTRIAXone\\ROCEPHIN 1 GM in Sodium Chloride 0.9% 100 ML IVPB SCH (14:22)
[2021-09-03 06:34] VITALS: BMI 32.5
[2021-09-03 06:50] LABS: Mean Corpuscular Hemoglobin 38.1 pg (27.0-31.0); Mean Platelet Volume 6.9 fL (7.4-10.4); Platelet Count 113 thou/uL (130-400); Red Blood Cell (RBC) Count 2.09 mill/uL (4.20-5.40); White Blood Cell (WBC) Count 8.3 thou/uL (4.8-10.8)
[2021-09-03 07:19] LABS: ALT (SGPT) 23 U/L (8-55); AST (SGOT) 35 U/L (5-34); Albumin 3.1 g/dL (3.5-5.0); Alkaline Phosphatase 61 U/L (40-110); Anion Gap 11 mmol/L (10-20); BUN (Urea Nitrogen) 30 mg/dL (9.8-20.1); Bilirubin, Total 2.8 mg/dL (0.2-1.2); Calc. Creatinine Clearance 75 mL/min (70-130); Calcium 8.2 mg/dL (7.8-10.44); Carbon Dioxide 22 mmol/L (22-29); Chloride 102 mmol/L (98-107); Globulin 1.8 g/dL (2.4-3.5); Glucose 94 mg/dL (70-105); Potassium 4.7 mmol/L (3.5-5.1); Protein, Total 4.9 g/dL (6.0-8.3); Sodium 130 mmol/L (136-145)
[2021-09-03] MEDS: Sodium Bicarbonate Tab 325 MG TAB PO SCH ×3 (09:44→21:47)
[2021-09-03] MEDS: Midodrine HCl 5 MG TAB PO SCH ×3 (09:44→21:47)
[2021-09-03] MEDS: Sodium Chloride 1 GM TAB PO SCH ×3 (09:44→21:47)
[2021-09-03] MEDS ORDERED: Midazolam HCl 2 mg/2 ml Vial ONE (09:46)
[2021-09-03] MEDS ORDERED: Ketamine 50 MG/ML (10ML VIAL) ONE (09:47)
[2021-09-03] MEDS ORDERED: Spironolactone 25 MG TAB PO SCH (10:30)
[2021-09-03] MEDS: Pantoprazole 40 MG VIAL IVP SCH ×2 (12:16→21:47)
[2021-09-03] MEDS: Multivit, Therapeutic 1 TAB PO SCH (12:20)
[2021-09-03] MEDS: Magnesium Oxide 400 MG TAB PO SCH (12:20)
[2021-09-03] MEDS: cefTRIAXone\\ROCEPHIN 1 GM in Sodium Chloride 0.9% 100 ML IVPB SCH (14:39)
[2021-09-04] MEDS ORDERED: Spironolactone 25 MG TAB PO SCH ×2 (08:00→10:15)
[2021-09-04 08:24] LABS: ALT (SGPT) 19 U/L (8-55); AST (SGOT) 33 U/L (5-34); Alkaline Phosphatase 65 U/L (40-110); Anion Gap 11 mmol/L (10-20); BUN (Urea Nitrogen) 25 mg/dL (9.8-20.1); Bilirubin, Total 2.3 mg/dL (0.2-1.2); Calc. Creatinine Clearance 88 mL/min (70-130); Calcium 7.7 mg/dL (7.8-10.44); Carbon Dioxide 20 mmol/L (22-29); Chloride 102 mmol/L (98-107); Globulin 1.8 g/dL (2.4-3.5); Glucose 88 mg/dL (70-105); Potassium 4.1 mmol/L (3.5-5.1); Protein, Total 4.8 g/dL (6.0-8.3); Sodium 129 mmol/L (136-145)
[2021-09-04] MEDS: Multivit, Therapeutic 1 TAB PO SCH (08:33)
[2021-09-04] MEDS: Magnesium Oxide 400 MG TAB PO SCH (08:33)
[2021-09-04] MEDS: Midodrine HCl 5 MG TAB PO SCH ×3 (08:33→21:13)
[2021-09-04] MEDS: Sodium Chloride 1 GM TAB PO SCH ×3 (08:33→21:14)
[2021-09-04] MEDS: Sodium Bicarbonate Tab 325 MG TAB PO SCH ×3 (08:33→21:15)
[2021-09-04] MEDS: Pantoprazole 40 MG VIAL IVP SCH ×2 (08:34→21:16)
[2021-09-04 08:39] LABS: Hemoglobin 7.6 g/dL (12.0-16.0); Mean Corpuscular HGB CONC 34.3 g/dL (32.0-36.0); Mean Corpuscular Hemoglobin 36.6 pg (27.0-31.0); Mean Platelet Volume 6.4 fL (7.4-10.4); Platelet Count 106 thou/uL (130-400); RBC Distribution Width 13.5 % (11.5-14.5); Red Blood Cell (RBC) Count 2.08 mill/uL (4.20-5.40); White Blood Cell (WBC) Count 4.6 thou/uL (4.8-10.8)
[2021-09-04 08:49] LABS: Band 3 % (5-11); Eosinophils 2 % (0-10); Lymphocytes 4 % (21-51); MDiff Complete? YES; Macrocytosis SLIGHT = 6-15 cells (100X) (0-5/hpf); Monocytes 14 % (0-10); Neutrophil 71 % (42-75); Platelet Morphology Comment Appears Decreased; Polychromasia SLIGHT = 2-3 cells (100X) (0-2/hpf); Reactive Lymphocytes 5 % (0-10)
[2021-09-04] MEDS ORDERED: Sodium Bicarbonate Tab 325 MG TAB PO SCH ×2 (10:06→10:15)
[2021-09-04 10:41] LABS: SARS-CoV-2 NAA Rapid Test Not Detected (NotDetected)
[2021-09-04] MEDS: cefTRIAXone\\ROCEPHIN 1 GM in Sodium Chloride 0.9% 100 ML IVPB SCH (13:41)
[2021-09-05 00:51] LABS: SARS-CoV-2 PCR by NAA Not Detected (NotDetected)
[2021-09-05 08:00] LABS: ALT (SGPT) 21 U/L (8-55); AST (SGOT) 35 U/L (5-34); Alkaline Phosphatase 72 U/L (40-110); Anion Gap 13 mmol/L (10-20); BUN (Urea Nitrogen) 21 mg/dL (9.8-20.1); Bilirubin, Total 2.4 mg/dL (0.2-1.2); Calc. Creatinine Clearance 97 mL/min (70-130); Calcium 7.8 mg/dL (7.8-10.44); Carbon Dioxide 20 mmol/L (22-29); Chloride 103 mmol/L (98-107); Globulin 1.8 g/dL (2.4-3.5); Glucose 86 mg/dL (70-105); Protein, Total 4.8 g/dL (6.0-8.3); Sodium 132 mmol/L (136-145)
[2021-09-05] MEDS ORDERED: Spironolactone 100 MG TAB PO SCH (08:00)
[2021-09-05 08:04] VITALS: BP 102/54; TEMP 98.1
[2021-09-05] MEDS: Sodium Bicarbonate Tab 325 MG TAB PO SCH ×2 (08:52→14:35)
[2021-09-05] MEDS: Sodium Chloride 1 GM TAB PO SCH ×2 (08:53→14:35)
[2021-09-05] MEDS: Magnesium Oxide 400 MG TAB PO SCH (08:53)
[2021-09-05] MEDS: Multivit, Therapeutic 1 TAB PO SCH (08:53)
[2021-09-05] MEDS: Midodrine HCl 5 MG TAB PO SCH ×2 (08:53→14:35)
[2021-09-05] MEDS: Pantoprazole 40 MG VIAL IVP SCH (08:54)
[2021-09-05] MEDS: cefTRIAXone\\ROCEPHIN 1 GM in Sodium Chloride 0.9% 100 ML IVPB SCH (14:36)
[2021-09-05] MEDS ORDERED: Rifaximin 550 MG TAB PO SCH (21:00)
== END 2021-09-05 16:16 | disposition short-term general hospital (02) | DRG 432 ==
LOC: ERS 06:40 → T4-B 11:25
PROVIDERS: ADMIT Family Medicine; ATTEND Internal Medicine
PROC: 0W9G3ZZ Drainage of Peritoneal Cavity, Percutaneous Approach (ICD-10-PCS; principal; 2021-08-29)
PROC: 0DJ08ZZ Inspection of Upper Intestinal Tract, Via Natural or Artificial Opening Endoscopic (ICD-10-PCS; 2021-09-03)
DX: K74.60 Unspecified cirrhosis of liver (principal); I85.11 Secondary esophageal varices with bleeding; I81 Portal vein thrombosis; K76.6 Portal hypertension; R18.8 Other ascites; E87.2 Acidosis; E22.2 Syndrome of inappropriate secretion of antidiuretic hormone; D62 Acute posthemorrhagic anemia; K75.81 Nonalcoholic steatohepatitis (NASH); E11.42 Type 2 diabetes mellitus with diabetic polyneuropathy; I95.9 Hypotension, unspecified; D69.6 Thrombocytopenia, unspecified; K29.80 Duodenitis without bleeding; K31.89 Other diseases of stomach and duodenum; J44.9 Chronic obstructive pulmonary disease, unspecified; K72.90 Hepatic failure, unspecified without coma; R59.9 Enlarged lymph nodes, unspecified; Z20.822 Contact with and (suspected) exposure to COVID-19; Z88.1 Allergy status to other antibiotic agents; Z88.8 Allergy status to other drugs, medicaments and biological substances; Z88.0 Allergy status to penicillin; Z79.01 Long term (current) use of anticoagulants; Z79.899 Other long term (current) drug therapy; Z79.51 Long term (current) use of inhaled steroids; Z90.49 Acquired absence of other specified parts of digestive tract; Z90.710 Acquired absence of both cervix and uterus; Z98.890 Other specified postprocedural states
CPT/HCPCS: 36415; 49083; 71045; 76705; 80048; 80053; 80400; 81003; 82040; 82274; 82436; 82533; 82550; 82728; 83540; 83550; 83735; 83880; 83930; 83935; 84133; 84300; 84443; 84484; 85014; 85018; 85025; 85049; 85060; 85610; 86850; 86900; 86901; 87070; 87205; 88112; 89051; 93005; 96374; 96375; C9113; J0696; J0834; J1650; J2250; J2270; J2405; J3490; J7620; P9047; U0002; U0003; U0005

== ENCOUNTER 2021-09-22 19:05 | Emergency (ER) | payer OTHER, MEDICARE ==
[2021-09-22 19:53] LABS: Hemoglobin 8.5 g/dL (12.0-16.0); Mean Platelet Volume 6.1 fL (7.4-10.4); Platelet Count 199 thou/uL (130-400); RBC Distribution Width 14.3 % (11.5-14.5); White Blood Cell (WBC) Count 8.6 thou/uL (4.8-10.8)
[2021-09-22 20:13] LABS: Band 2 % (5-11); Eosinophils 1 % (0-10); Lymphocytes 4 % (21-51); MDiff Complete? YES; Monocytes 17 % (0-10); Neutrophil 76 % (42-75)
[2021-09-22] MEDS ORDERED: Morphine 4 MG/ML VIAL ONE (20:14)
[2021-09-22 20:16] LABS: ALT (SGPT) 27 U/L (8-55); AST (SGOT) 56 U/L (5-34); Alkaline Phosphatase 110 U/L (40-110); Anion Gap 12 mmol/L (10-20); BUN (Urea Nitrogen) 25 mg/dL (9.8-20.1); Bilirubin, Total 3.1 mg/dL (0.2-1.2); Calc. Creatinine Clearance 0 mL/min (70-130); Calcium 8.5 mg/dL (7.8-10.44); Carbon Dioxide 18 mmol/L (22-29); Chloride 97 mmol/L (98-107); Globulin 2.4 g/dL (2.4-3.5); Glucose 132 mg/dL (70-105); Lipase 35 U/L (8-78); Potassium 4.5 mmol/L (3.5-5.1); Protein, Total 5.4 g/dL (6.0-8.3); Sodium 122 mmol/L (136-145)
[2021-09-22 20:30] LABS: Bilirubin Negative (Negative); Blood, Urine Negative (Negative); Clarity Clear (Clear); Glucose, Urine (Dipstick) Normal (Negative); Ketone, Urine Negative (Negative); Leukocyte Negative Leu/uL (Negative); Nitrite Negative (Negative); Protein, Urine (Dipstick) Negative (Neg-Trace); Specific Gravity, Urine 1.017 (1.002-1.036); Urobilinogen Normal mg/dL (Less than 2); pH, Urine 5.5 (5.0-9.0)
[2021-09-22] MEDS ORDERED: Lidocaine 1% PF 5 ML VIAL ONE (20:42)
[2021-09-22 22:18] LABS: BF Color Yellow; Body Fluid Source Ascites Body Fluid; Clarity Hazy (Clear); Tube # 1
[2021-09-22 22:22] LABS: RBC Count-Automated (BF) 7727 /cu.mm; WBC/Nucleated-Auto (BF) 135 /cu.mm
[2021-09-22 22:28] LABS: BF Segmented Neutrophils 15 %; Cell Count Non Hematic 51 %; Lymphocytes 34 %
== END 2021-09-22 22:39 | disposition home or self-care (01) ==
LOC: ERS 19:05
DX: K74.60 Unspecified cirrhosis of liver (principal); E87.1 Hypo-osmolality and hyponatremia; E11.9 Type 2 diabetes mellitus without complications; I10 Essential (primary) hypertension
CPT/HCPCS: 36415; 49082; 80053; 81003; 83690; 85025; 85060; 87070; 87205; 89051; 96374; J2270

== ENCOUNTER 2021-09-28 01:43 | Inpatient (IN) | payer OTHER, MEDICARE ==
[2021-09-28] MEDS ORDERED: Fentanyl 100 MCG/2 ML VIAL ONE (02:54)
[2021-09-28] MEDS ORDERED: Ondansetron PF 4 MG/2 ML Vial ONE (02:55)
[2021-09-28] MEDS ORDERED: cefTRIAXone\\ROCEPHIN 1 GM VIAL ONE ×2 (02:55→08:48)
[2021-09-28 03:07] LABS: Hemoglobin 8.6 g/dL (12.0-16.0); Mean Corpuscular HGB CONC 34.1 g/dL (32.0-36.0); Mean Corpuscular Hemoglobin 33.9 pg (27.0-31.0); Mean Corpuscular Volume 99.2 fL (78.0-98.0); Platelet Count 179 thou/uL (130-400); RBC Distribution Width 14.1 % (11.5-14.5); Red Blood Cell (RBC) Count 2.53 mill/uL (4.20-5.40); White Blood Cell (WBC) Count 12.9 thou/uL (4.8-10.8)
[2021-09-28 03:23] LABS: ALT (SGPT) 34 U/L (8-55); AST (SGOT) 62 U/L (5-34); Albumin 2.8 g/dL (3.5-5.0); Alkaline Phosphatase 137 U/L (40-110); Anion Gap 13 mmol/L (10-20); BUN (Urea Nitrogen) 37 mg/dL (9.8-20.1); Calc. Creatinine Clearance 0 mL/min (70-130); Calcium 8.4 mg/dL (7.8-10.44); Carbon Dioxide 17 mmol/L (22-29); Chloride 90 mmol/L (98-107); Globulin 2.3 g/dL (2.4-3.5); Glucose 108 mg/dL (70-105); Lipase 39 U/L (8-78); Magnesium 2.3 mg/dL (1.6-2.6); Potassium 5.2 mmol/L (3.5-5.1); Protein, Total 5.1 g/dL (6.0-8.3)
[2021-09-28 03:27] LABS: Sodium 115 mmol/L (136-145)
[2021-09-28 03:36] LABS: Band 8 % (5-11); Eosinophils 1 % (0-10); MDiff Complete? YES; Monocytes 12 % (0-10); Neutrophil 78 % (42-75)
[2021-09-28] MEDS ORDERED: Pantoprazole 40 MG VIAL ONE (05:40)
[2021-09-28 07:27] LABS: Anion Gap 12 mmol/L (10-20); BUN (Urea Nitrogen) 35 mg/dL (9.8-20.1); Calc. Creatinine Clearance 0 mL/min (70-130); Calcium 8.1 mg/dL (7.8-10.44); Carbon Dioxide 17 mmol/L (22-29); Chloride 94 mmol/L (98-107); Glucose 90 mg/dL (70-105); Potassium 5.4 mmol/L (3.5-5.1)
[2021-09-28 07:36] LABS: Sodium 118 mmol/L (136-145)
[2021-09-28] MEDS ORDERED: HYDROcodone/Acetaminophen 5/325 mg Tablet PO PRN (08:14)
[2021-09-28] MEDS ORDERED: Ondansetron ODT 4 MG TAB PO PRN (08:14)
[2021-09-28] MEDS ORDERED: Ondansetron PF 4 MG/2 ML Vial IVP PRN (08:14)
[2021-09-28 08:47] LABS: INR-International Normal Ratio 1.4; Prothrombin Time 16.9 sec (12.0-14.7)
[2021-09-28] MEDS: cefTRIAXone\\ROCEPHIN 1 GM in Sodium Chloride 0.9% 100 ML IVPB SCH (08:48)
[2021-09-28] MEDS ORDERED: Albumin 25% 25 GM/100 ML BOT IVPB SCH (09:15)
[2021-09-28] MEDS ORDERED: Sodium Bicarbonate Tab 325 MG TAB PO SCH (09:45)
[2021-09-28 10:01] VITALS: BMI 32.7
[2021-09-28] MEDS: Famotidine 20 MG TAB PO SCH ×2 (10:30→20:24)
[2021-09-28] MEDS: Midodrine HCl 5 MG TAB PO SCH ×3 (10:31→20:25)
[2021-09-28] MEDS: Rifaximin 550 MG TAB PO SCH ×2 (10:31→20:25)
[2021-09-28] MEDS: Morphine 2 MG/ML VIAL SLOW IVP PRN (10:37)
[2021-09-28 10:59] LABS: SARS-CoV-2 NAA Rapid Test Not Detected (NotDetected)
[2021-09-28 12:42] LABS: Anion Gap 10 mmol/L (10-20); BUN (Urea Nitrogen) 36 mg/dL (9.8-20.1); Calc. Creatinine Clearance 49 mL/min (70-130); Calcium 8.1 mg/dL (7.8-10.44); Carbon Dioxide 18 mmol/L (22-29); Chloride 93 mmol/L (98-107); Glucose 99 mg/dL (70-105); Potassium 5.2 mmol/L (3.5-5.1)
[2021-09-28 12:55] LABS: Sodium 116 mmol/L (136-145)
[2021-09-28] MEDS: Albumin 25% 25 GM/100 ML BOT IVPB SCH ×2 (12:55→18:15)
[2021-09-28] MEDS ORDERED: Lidocaine 1% PF 5 ML VIAL ONE (14:24)
[2021-09-28] MEDS ORDERED: Sodium Bicarbonate 2.5 MEQ/5 ML VIAL ONE (14:24)
[2021-09-28] MEDS ORDERED: cefTRIAXone\\ROCEPHIN 1 GM in Sodium Chloride 0.9% 100 ML IVPB SCH (15:00)
[2021-09-28] MEDS: Sodium Bicarbonate Tab 325 MG TAB PO SCH ×2 (15:40→20:25)
[2021-09-28 16:51] LABS: RBC Count-Automated (BF) 5920 /cu.mm; WBC/Nucleated-Auto (BF) 349 /cu.mm
[2021-09-28 17:16] LABS: Body Fluid Source Ascites Body Fluid; Tube # EDTA
[2021-09-28 17:17] LABS: BF Color Pink; Clarity Cloudy/Turbid (Clear)
[2021-09-28 17:21] LABS: BF Segmented Neutrophils 22 %; Cell Count Non Hematic 48 %; Lymphocytes 30 %
[2021-09-28 19:52] LABS: Anion Gap 12 mmol/L (10-20); BUN (Urea Nitrogen) 34 mg/dL (9.8-20.1); Calc. Creatinine Clearance 52 mL/min (70-130); Calcium 7.8 mg/dL (7.8-10.44); Carbon Dioxide 18 mmol/L (22-29); Chloride 92 mmol/L (98-107); Glucose 128 mg/dL (70-105); Potassium 5.1 mmol/L (3.5-5.1)
[2021-09-28 20:07] LABS: Sodium 117 mmol/L (136-145)
[2021-09-29 01:36] LABS: Anion Gap 11 mmol/L (10-20); BUN (Urea Nitrogen) 33 mg/dL (9.8-20.1); Calc. Creatinine Clearance 55 mL/min (70-130); Calcium 8.3 mg/dL (7.8-10.44); Carbon Dioxide 18 mmol/L (22-29); Chloride 93 mmol/L (98-107); Glucose 110 mg/dL (70-105); Potassium 5.4 mmol/L (3.5-5.1)
[2021-09-29 01:46] LABS: Sodium 117 mmol/L (136-145)
[2021-09-29 07:34] LABS: Hemoglobin 7.6 g/dL (12.0-16.0); Mean Corpuscular HGB CONC 33.9 g/dL (32.0-36.0); Mean Corpuscular Hemoglobin 34.2 pg (27.0-31.0); Mean Platelet Volume 6.7 fL (7.4-10.4); Platelet Count 122 thou/uL (130-400); RBC Distribution Width 14.1 % (11.5-14.5); Red Blood Cell (RBC) Count 2.22 mill/uL (4.20-5.40)
[2021-09-29 07:57] LABS: ALT (SGPT) 29 U/L (8-55); AST (SGOT) 67 U/L (5-34); Albumin 2.9 g/dL (3.5-5.0); Alkaline Phosphatase 105 U/L (40-110); Anion Gap 13 mmol/L (10-20); BUN (Urea Nitrogen) 35 mg/dL (9.8-20.1); Bilirubin, Total 2.7 mg/dL (0.2-1.2); Calc. Creatinine Clearance 45 mL/min (70-130); Calcium 8.2 mg/dL (7.8-10.44); Carbon Dioxide 18 mmol/L (22-29); Chloride 92 mmol/L (98-107); Glucose 94 mg/dL (70-105); Potassium 5.9 mmol/L (3.5-5.1); Protein, Total 4.9 g/dL (6.0-8.3)
[2021-09-29 08:01] VITALS: BP 80/47; TEMP 98.7
[2021-09-29 08:05] LABS: Sodium 117 mmol/L (136-145)
[2021-09-29] MEDS ORDERED: Dextrose 50% Abboject 50 ML SYRINGE SLOW IVP SCH (08:14)
[2021-09-29] MEDS ORDERED: Insulin Regular 300 UNITS/3 ML VIAL IVP SCH (08:14)
[2021-09-29] MEDS: Rifaximin 550 MG TAB PO SCH (08:27)
[2021-09-29] MEDS: Midodrine HCl 5 MG TAB PO SCH (08:27)
[2021-09-29] MEDS: Sodium Bicarbonate Tab 325 MG TAB PO SCH (08:27)
[2021-09-29] MEDS: Famotidine 20 MG TAB PO SCH (08:27)
[2021-09-29 08:47] LABS: Band 16 % (5-11); Hypochromia SLIGHT = 6-15 cells (100X) (0-5/hpf); Lymphocytes 3 % (21-51); MDiff Complete? YES; Metamyelocyte 2 % (0-0); Monocytes 6 % (0-10); Neutrophil 73 % (42-75); Platelet Morphology Comment Appears Decreased; Polychromasia SLIGHT = 2-3 cells (100X) (0-2/hpf)
[2021-09-29] MEDS ORDERED: Sodium Bicarbonate 150 MEQ in Dextrose 5% in Water 1,000 ML IV SCH (09:00)
[2021-09-29] MEDS ORDERED: Sodium Chloride 1 GM TAB PO SCH (09:00)
[2021-09-29] MEDS ORDERED: Albumin 25% 25 GM/100 ML BOT IVPB SCH (09:00)
[2021-09-29] MEDS: cefTRIAXone\\ROCEPHIN 1 GM in Sodium Chloride 0.9% 100 ML IVPB SCH (09:59)
[2021-09-29] MEDS: Morphine 2 MG/ML VIAL SLOW IVP PRN (10:00)
== END 2021-09-29 15:15 | disposition hospice, home (50) | DRG 432 ==
LOC: ERS 01:43 → ERHOLD 05:59 → T4-B 09:32
PROVIDERS: ADMIT Internal Medicine; ATTEND Family Medicine
PROC: 0W9G3ZZ Drainage of Peritoneal Cavity, Percutaneous Approach (ICD-10-PCS; principal; 2021-09-28)
DX: K74.69 Other cirrhosis of liver (principal); K76.7 Hepatorenal syndrome; I81 Portal vein thrombosis; K76.6 Portal hypertension; R18.8 Other ascites; N17.9 Acute kidney failure, unspecified; E87.2 Acidosis; E22.2 Syndrome of inappropriate secretion of antidiuretic hormone; Z66 Do not resuscitate; Z51.5 Encounter for palliative care; Z20.822 Contact with and (suspected) exposure to COVID-19; I95.1 Orthostatic hypotension; E78.5 Hyperlipidemia, unspecified; M79.7 Fibromyalgia; G51.0 Bell's palsy; G40.909 Epilepsy, unspecified, not intractable, without status epilepticus; F32.A Depression, unspecified; D63.8 Anemia in other chronic diseases classified elsewhere; E11.22 Type 2 diabetes mellitus with diabetic chronic kidney disease; N18.9 Chronic kidney disease, unspecified; K31.89 Other diseases of stomach and duodenum; E87.5 Hyperkalemia; I12.9 Hypertensive chronic kidney disease with stage 1 through stage 4 chronic kidney disease, or unspecified chronic kidney disease; Z90.49 Acquired absence of other specified parts of digestive tract; Z88.0 Allergy status to penicillin; Z88.8 Allergy status to other drugs, medicaments and biological substances; Z88.1 Allergy status to other antibiotic agents; Z79.51 Long term (current) use of inhaled steroids; Z79.899 Other long term (current) drug therapy; Z98.51 Tubal ligation status; Z90.710 Acquired absence of both cervix and uterus; Z90.09 Acquired absence of other part of head and neck; Z98.890 Other specified postprocedural states
CPT/HCPCS: 36415; 36416; 49083; 74176; 80053; 83605; 83690; 83735; 83880; 85025; 85060; 85610; 87040; 87070; 87205; 89051; C9113; J0696; J1815; J2270; J2405; J3010; J3490; J7070; J7999; P9047; U0002